=== PATIENT | female | born 1990 | race Caucasian/White ===

== ENCOUNTER 2017-03-15 15:18 | Outpatient (CLI) | END 2017-03-15 15:19 | disposition short-term general hospital (02) | LOC: AMBL 15:18 | PROVIDERS: ATTEND Internal Medicine | DX: M54.2 Cervicalgia (principal); M54.9 Dorsalgia, unspecified; V86.99XA Unspecified occupant of other special all-terrain or other off-road motor vehicle injured in nontraffic accident, initial encounter ==